=== PATIENT | female | born 1945 | race Caucasian/White ===

== ENCOUNTER 2021-01-13 13:25 | Inpatient (IN) | payer OTHER ==
[~2021-01-13] VITALS: Ht 149.9 cm; Wt 61.2 kg
[~2021-01-13 13:25] MED LIST: CLONAZEPAM1 MG PO; HUMUL; LEVOTHYROXINE25 MCG PO; LIPIT PO; TOPROL PO; ZESTRIL5 MG PO
== END 2021-01-16 10:57 | disposition home or self-care (01) | DRG 743 ==
LOC: O/R 01-14 05:30 → SURH 01-14 09:34 → OB/GYN 01-14 11:38 → SURH 01-15 08:30 → OB/GYN 01-16 10:57
PROVIDERS: ADMIT Obstetrics & Gynecology; ATTEND Obstetrics & Gynecology
PROC: 0UT60ZZ Resection of Left Fallopian Tube, Open Approach (ICD-10-PCS; 2021-01-14)
PROC: 0UT10ZZ Resection of Left Ovary, Open Approach (ICD-10-PCS; principal; 2021-01-14 11:00)
DX: D27.1 Benign neoplasm of left ovary (principal)